=== PATIENT | male | born 1960 | race Caucasian/White ===

== ENCOUNTER 2020-09-26 09:23 | Inpatient (IN) ==
--- NOTE | 2020-09-11 15:34 | PAT Medication Instructions ---
Medication Instructions Date of Service September 11, 2020 Home Medications allopurinol 300 mg PO QAM lisinopril 10 mg PO QAM multivitamin 1 tab PO QAM sulfasalazine 0.5 g PO UD ASK your prescriber and surgeon sulfasalazine 0.5 g PO UD DO NOT take the morning of surgery lisinopril 10 mg PO QAM multivitamin 1 tab PO QAM Take morning of surgery With a small sip of water, OTHERWISE NOTHING TO EAT OR DRINK AFTER MIDNIGHT: allopurinol 300 mg PO QAM Other Notes If you have any questions please call us at [phone] or [phone] or [phone] or [phone]
--- NOTE | 2020-09-12 12:23 | Anesthesiology Consultation ---
Date of Service September 12, 2020 Assessment & Plan (1) Encounter for pre-operative examination: Chart Review Chart Review: Acceptable Risk for Surgery (pending preop Covid testing results ) and Patient seen in Pre Admission Testing Per PAT appt on 09/12/20, patient denies any recent travel. No known Covid positive contacts or Covid related symptoms. No known Covid infections in the past 90 days. Preop Covid testing scheduled 09/19/20= will await results. Educated on importance of self quarantining, social distancing and wearing mask in public both for the patient and household contacts. Pt will be fully vaccinated by time of surgery. Teaching & Discussion Pre-Anesthesia Teaching/Discussion Notes: Instructed NPO after midnight before surgery,except medications with 15 cc of water. Medication instructions provided according to the [facility] guidelines. History Surgery Operation Date: 09/26/20 13:25 Proposed Procedures p L4-S1 Decompression and Fusion, Spinal Cord Monitoring - Kevan Hardy, Height/Weight Height: 5 ft 10.5 in Weight: 92.1 kg Allergies Allergy/AdvReac Type Severity Reaction Status Date / Time No Known Allergies Allergy Verified 09/06/20 14:31 Medications Home Medications Medication Instructions Recorded Confirmed Last Taken allopurinol 300 mg PO QAM 09/06/20 09/06/20 Unknown lisinopril 10 mg PO QAM 09/06/20 09/06/20 Unknown multivitamin 1 tab PO QAM 09/06/20 09/06/20 Unknown sulfasalazine 0.5 g PO UD 09/06/20 09/06/20 Unknown zolpidem [Ambien] 5 mg PO HS PRN 09/12/20 09/12/20 Unknown Past Medical History Medical History (Updated 09/12/20 @ 12:54 by Buffy Magdaleno PA-C) Degenerative disc disease Hx of dislocation of shoulder Occurred 9 years - no current issues Hx of gout Hypertension Ulcerative colitis Stable with meds Exercise / Class Metabolic Activity II 4-5 Yardwork/Stairs/Walk up hill (one flight of stairs - no chest pain or SOB ) Past Family History Family History Other No family history of adverse response to anesthesia Past Surgical History Surgical History History of colonoscopy Hx of LASIK Hx of vasectomy Past Anesthesia History No Hx of Anesthesia Complications and No Family Hx of Anesthesia Complications History of PONV No Hx of PONV and No Hx of Motion Sickness Social History Smoking Status: Never smoker Hx Alcohol Use: No Hx Substance Use: No Review of Systems Patient denies chest pain, shortness of breath, dyspnea on exertion, reflux, cough, wheezing, palpitations. No hx of seizures, stroke, CT, apnea/snoring. No hx of blood clots or blood transfusions Physical Exam Vital Signs VITALS BP 120/78 P 66 TEMP 97.8 SP02 97% RESP 16 Constitutional no acute distress ENMT Mouth: no TMJ clicking Thyromental Distance: > or= 3.5 Finger Breadths (3.5) Mallampati Class: I Denies any loose or missing teeth Neck neck extension not limited Respiratory normal respiratory effort; no respiratory distress Auscultation: lungs clear to auscultation bilaterally; no wheezes Cardiovascular Rate/Rhythm: regular rate and regular rhythm Heart Sounds: no murmur Vessels: no carotid bruit Musculoskeletal Spine: no pain with cervical ROM Extremities: extremities normal to inspection Psychiatric Orientation: alert Testing Laboratory Results 09/12/20 12:35 09/12/20 12:35 PT 10.1 Seconds (9.0-12.0) 09/12/20 12:35 INR 1.0 (0.9-1.1) 09/12/20 12:35 APTT 24.8 Seconds (21.0-31.0) 09/12/20 12:35 Urine Color Yellow 09/12/20 12:35 Urine Appearance Clear (Clear) 09/12/20 12:35 Urine pH 7.0 (4.5-7.5) 09/12/20 12:35 Ur Specific [place] 1.010 (1.000-1.030) 09/12/20 12:35 Urine Protein Negative (Negative) 09/12/20 12:35 Urine Glucose (UA) Negative (Negative) 09/12/20 12:35 Urine Ketones Negative (Negative) 09/12/20 12:35 Urine Nitrite Negative (Negative) 09/12/20 12:35 Ur Leukocyte Esterase Negative (Negative) 09/12/20 12:35 Blood Type A Positive 09/12/20 12:35 Antibody Screen NEGATIVE 09/12/20 12:35 Electrocardiogram Date: 09/12/20 Findings: + NSR @ (63bpm) Normal EKG per cardio. Chest X-Ray Date: 09/12/20 Findings: + NAD
--- NOTE | 2020-09-12 12:51 | XRay Report ---
XR chest Pre-admission PA/Lat HISTORY: Back pain. Preop. COMPARISON: None. FINDINGS: The lungs are clear. Cardiac silhouette is normal in size. No pleural effusions. No pneumot horax. IMPRESSION: No acute process. ACT 112: Negative or not required by law. Electronically signed by: Jayson Kasper M.D. 09/12/2020 12:50 PM
[2020-09-12 13:14] LABS: Appearance Urine Clear (Clear); Bilirubin Urine Negative (Negative); Blood Urine Negative (Negative); Color Urine Yellow; Glucose Urine UA Negative (Negative); Ketones Urine Negative (Negative); Leukocyte Esterase Urine Negative (Negative); Nitrite Urine Negative (Negative); Protein Urine Negative (Negative); Urobilinogen Urine Negative (Negative)
[2020-09-12 13:21] LABS: Basophils # (auto) 0.06 K/uL (0-0.2); Basophils % (auto) 0.9 %; Eosinophils # (auto) 0.11 K/uL (0-0.5); Eosinophils % (auto) 1.7 %; Hematocrit (blood only) 41.9 % (42-52); Hemoglobin 14.4 g/dL (14.0-18.0); Immature Granulocytes # (auto) 0.01 K/uL (0.00-0.02); Immature Granulocytes % (auto) 0.2 %; Lymphocytes # (auto) 1.14 K/uL (1.2-3.4); Mean Corpuscular Hemoglobin 31.7 pg (25-34); Mean Corpuscular Hgb Conc 34.4 g/dL (32-36); Mean Corpuscular Volume 92.3 fL (80-100); Mean Platelet Volume 9.8 fL (7.4-10.4); Monocytes # (auto) 0.69 K/uL (0.11-0.59); Monocytes % (auto) 10.9 %; Neutrophils # (auto) 4.34 K/uL (1.4-6.5); Neutrophils % (auto) 68.3 %; Platelet Count 346 K/uL (130-400); RDW Coefficient of Variation 13.2 % (11.5-14.5); RDW Standard Deviation 44.9 fL (36.4-46.3); Red Blood Count 4.54 M/uL (4.7-6.1); White Blood Count 6.35 K/uL (4.8-10.8)
[2020-09-12 13:30] LABS: Partial Thromboplastin Ratio 0.9; Partial Thromboplastin Time 24.8 Seconds (21.0-31.0); Prothrombin Time 10.1 Seconds (9.0-12.0)
[2020-09-12 14:54] LABS: BUN Creatinine Ratio 22.4 (10-20); Creatinine Clr Calc Pharmacy 90.1 ml/min; Est GFR (African American) 94.9; Est GFR (Non-African American) 81.9; Potassium 4.2 mmol/L (3.5-5.1)
--- NOTE | 2020-09-13 20:18 | Electrocardiogram Report ---
Test Reason : Blood Pressure : / mmHG Vent. Rate : 063 BPM Atrial Rate : 063 BPM P-R Int : 146 ms QRS Dur : 084 ms QT Int : 386 ms P-R-T Axes : 066 051 044 degrees QTc Int : 395 ms Normal sinus rhythm Normal ECG No previous ECGs available Confirmed by Stephon Jones ([id number]) on 09/13/2020 8:18:30 PM Referred By: Kevan Hardy Confirmed By:Stephon Jones
[~2020-09-26 09:23] MED LIST: ACETAMINOPHEN 500 MG TAB PO SCH; CeleBREX 200 MG CAP PO SCH; DEXAMETHASONE SOD INJ 4 MG/ML VIAL ONE; GABAPENTIN 600 MG DOSE PO SCH; GLYCOPYRROLATE 0.2 MG/ML VIAL ONE; LIDOCAINE HCL 2% 2 ML VIAL/AMP(20MG/ML) INFIL ONE; LR 15ML/HR IV SCH; MIDAZOLAM HCL 1 MG/ML 2ML VIAL ONE; NEOSTIGMINE METHYLSULFATE 1 MG/ML 10ML VIAL ONE; ONDANSETRON INJ 2 MG/ML 2 ML VIAL ONE; PROPOFOL IV EMULSION 10 MG/ML 20 ML VIAL IV ONE; ROCURONIUM BROMIDE 10 MG/ML 5 ML VIAL IV ONE; ceFAZolin 2000MG 2,000 MG/15 ML SYR IV SCH; fentaNYL citrate 100 MCG/2 ML VIAL ONE
--- NOTE | 2020-09-26 10:01 | History & Physical Bridge Note ---
Date of Service September 26, 2020 History & Physical Bridge Note I have examined the patient, reviewed the History & Physical and in the interval since the performance of the History & Physical I have noted the following changes of clinical significance: no changes noted
--- NOTE | 2020-09-26 10:02 | History & Physical Report ---
Date of Service September 26, 2020 Assessment & Plan (1) Lumbar disc herniation with radiculopathy: Admission and Anticipated Discharge Date Admission Date: L4-S1 decompression fusion History of Present Illness Chief Complaint: Back and leg pain Primary Care Provider: Donaldo Fenton This is a 59-year-old male presents with chronic persistent back and leg pain. Failing course of nonoperative care is here for surgical invention. Allergies Allergy/AdvReac Type Severity Reaction Status Date / Time No Known Allergies Allergy Verified 09/26/20 09:55 Home Medications Medication Instructions Recorded Confirmed Type allopurinol 300 mg PO QAM 09/06/20 09/26/20 History lisinopril 10 mg PO QAM 09/06/20 09/26/20 History multivitamin 1 tab PO QAM 09/06/20 09/26/20 History sulfasalazine 0.5 g PO UD 09/06/20 09/26/20 History zolpidem [Ambien] 5 mg PO HS PRN 09/12/20 09/26/20 History Past Med/Surg History Medical History (Updated 09/26/20 @ 10:02 by Kevan Hardy DO) Degenerative disc disease Hx of dislocation of shoulder Occurred 9 years - no current issues Hx of gout Hypertension Ulcerative colitis Stable with meds Surgical History History of colonoscopy Hx of LASIK Hx of vasectomy Family History Other No family history of adverse response to anesthesia Social History Smoking Status: Never smoker Second Hand Exposure: No; Hx Alcohol Use: No Hx Substance Use: No Preferred Language: [place] 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
[2020-09-26] MEDS ORDERED: BUPIVACAINE/EPINEPHRINE 0.5% MPF 1:200,000 30 ML VIAL ONE (10:15)
[2020-09-26] MEDS ORDERED: GLYCOPYRROLATE 0.2 MG/ML VIAL ONE (11:10)
[2020-09-26] MEDS ORDERED: FLOSEAL HEMOSTATIC MATRIX 10ML TOP ONE (11:38)
--- NOTE | 2020-09-26 12:45 | Operative Report ---
Post Operative Report Pre & Post Diagnosis Operation Date: 09/26/20 11:05 Pre-Op Diagnosis: Lumbar Disc Herniation with Radiculopathy Post-Op Diagnosis: Lumbar Disc Herniation with Radiculopathy I identified the patient and participated in the time-out.: Yes Procedure Operation Date: 09/26/20 11:05 Actual Procedures #1 lumbar decompression with bilateral medial facetectomies and foraminotomies L3-4, L4-5 and L5-S1. #2 posterior spinal fusion L4-5 L5-S1. #3 placement posterior instrumentation L4-5 L5-S1. #4 interbody fusion L4-5 L5-S1. #5 place ment peek cage 12 x 26 mm at L4-5 and 9 x 26 mm at L5-S1. #6 placement locally harvested morselized autograft in the posterior gutters. #7 placement of I factor in the interbody space and posterior gutters. Surgeon Kevan Hardy, Personnel Security Specialist Nisa Hamilton Estimated Blood Loss 100 Findings Consistent with Post-Op Diagnosis Specimens None Indications This is a 59-year-old male who presents above-mentioned diagnosis after failing extensive course of nonoperative care is here for the above-mentioned procedure. Description of Procedure Patient met with identified informed consent obtained. Patient was then taken to the operative suite underwent a patient placed in a prone position just table top Aj frame. All bony prominences well-padded eyes inspected to ensure no external pressure placed upon them. This point lumbar spine was prepped and draped in a sterile fashion. Sharp dissection with the assistance of Bovie cautery performed down to and exposing the lamina and transverse processes of L for L5 and sacral ala bilaterally. From a caudal cephalad fashion complete laminectomy of L5 L4 partial laminectomy L3 was performed including bilateral medial facetectomies and foraminotomies addressing all stenosis. I also identified a massive far lateral disc condition L4-5 this is removed in its entirety. Pedicle screws then placed in L for L5 and S1 levels bilaterally with assistance of fluoroscopy the purposes laina placed. Bilateral transforaminal portion right complete discectomy of L5-S1 was performed endplates curetted to subcortical being bone and a 9 x 26 mm peek cage filled with I factor tapped in position. Then proceeded L4-L5 and again by transfemoral approach on the right complete discectomy performed endplates curetted to subcortical mean bone and a 12 x 26 mm I factor tapped in position. The rods were then locked in position bilaterally. The transverse processes of L4-L5 and sacral ala burred to subcortical bleeding bone. I factor combined with locally harvested morselized autograft was placed in posterior gutters. 15 round MARTHA drain inserted. The incision was then closed with 1 Vicryl in the fascia 2-0 Vicryl subcutaneously and 4 Monocryl for final skin closure. Steri-Strips dressings placed. Patient waken taken to PACU stable condition. Please note spinal cord monitoring was utilized at the procedure no changes noted. Lastly Nisa Hamilton was present for the entire surgery involved the patient positioning complex portions of the surgery and final skin closure. I attest to the content of the Intraoperative Record and any orders documented therein. Any exceptions are noted below.
--- NOTE | 2020-09-26 12:58 | Fluoroscopy Report ---
FL lumbar spine 2-3V CLINICAL HISTORY: L4-S1 PSF AND DECOMPRESSION COMPARISON STUDY: None. FLUOROSCOPY TIME: 27 seconds. FLUOROSCOPIC IMAGES: 2 FINDINGS: Fluoroscopy was provided during L4-L5 and L5-S1 discectomies with interbody spacer placemen t. The interbody spacer at the L5-S1 level is within the anterior aspect of the disc space. Posterior decompression is noted with bilateral pedicle screw fusion from L4 through S1. Hardware is intact. T here are no unexpected radiopaque foreign bodies. IMPRESSION: Fluoroscopy provided during L4-S1 discectomy, posterior decompression and bilateral post erior fusion. ACT 112: Negative or not required by law. Electronically signed by: Manish Szymanski M.D. 09/26/2020 12:57 PM
[2020-09-26] MEDS ORDERED: HYDROmorphone INJ 0.5 MG/0.5 ML SYR IV PRN (14:00)
[2020-09-26] MEDS ORDERED: NALOXONE HCL 0.4 MG/1 ML VIAL/CARP IV PRN (14:00)
[2020-09-26] MEDS ORDERED: diphenhydrAMINE Capsule 25 MG CAP PO PRN (14:00)
[2020-09-26] MEDS ORDERED: ONDANSETRON INJ 2 MG/ML 2 ML VIAL IV PRN (14:00)
[2020-09-26] MEDS ORDERED: LORazepam 0.5 MG TAB PO PRN (14:00)
[2020-09-26] MEDS ORDERED: ACETAMINOPHEN 500 MG TAB PO PRN (14:00)
[2020-09-26] MEDS ORDERED: hydrOXYzine HCl 25 MG TAB PO PRN (14:00)
[2020-09-26] MEDS ORDERED: bisacodyL 10 MG SUPP PR PRN (14:00)
[2020-09-26] MEDS ORDERED: ONDANSETRON 4 MG OD TAB PO PRN (14:00)
[2020-09-26] MEDS ORDERED: SOD PHOSPHATE/SOD BIPHOSPHATE ENEMA 132 ML BTL PR PRN (14:00)
[2020-09-26] MEDS ORDERED: LORazepam 0.5 MG/1 ML VIAL IV PRN (14:00)
[2020-09-26] MEDS ORDERED: ALUMINUM/MAGNESIUM SUSP 30 ML UDC PO PRN (14:00)
[2020-09-26] MEDS ORDERED: ACETAMINOPHEN 1,000 MG/100 ML VIAL IV PRN (14:00)
[2020-09-26] MEDS ORDERED: MAGNESIUM HYDROXIDE SUSP 30 ML UDC PO PRN (14:00)
[2020-09-26] MEDS ORDERED: METOCLOPRAMIDE HCL INJ 5 MG/ML 2 ML VIAL IV PRN (14:00)
[2020-09-26] MEDS ORDERED: oxyCODONE HCL IR 5 MG TAB (IMMEDIATE RELEASE) PO PRN (14:00)
[2020-09-26] MEDS ORDERED: FAMOTIDINE 20 MG TAB PO PRN (14:00)
[2020-09-26] MEDS ORDERED: DO NOT ADMINISTER PNEUMOCOCCAL VACCINE PRN (14:00)
[2020-09-26] MEDS ORDERED: PROMETHAZINE HCL 12.5 MG in SODIUM CHLORIDE 0.9% 50 ML IV PRN (14:00)
[2020-09-26] MEDS ORDERED: HYDROmorphone INJ 1 MG/ML SYRINGE IV PRN (14:00)
[2020-09-26] MEDS ORDERED: traMADol HCL 50 MG TABLET PO PRN (14:00)
[2020-09-26] MEDS ORDERED: ZOLPIDEM TARTRATE 5 MG TAB PO PRN (14:00)
[2020-09-26] MEDS ORDERED: DO NOT ADMINISTER FLU VACCINE PRN (14:00)
--- NOTE | 2020-09-26 14:03 | Anesthesiology Progress Note ---
Date of Service September 26, 2020 Anesthesia Post Procedure Vital Signs Vital Signs: Temp Pulse Pulse Resp BP Pulse Ox 09/26/20 13:45 66 12 130/66 95 09/26/20 13:35 36.2 C L 69 15 141/67 H 97 09/26/20 13:25 70 12 139/67 96 09/26/20 13:15 78 16 146/69 H 97 09/26/20 13:06 36.0 C L 94 H 20 152/94 H 98 09/26/20 10:00 36.5 C 64 18 142/87 H 98 Transfer of Care Handoff Completed per policy Notes Mental Status: alert / awake / arousable Patient Amnestic to Procedure: Yes Nausea / Vomiting: adequately controlled Pain: adequately controlled Airway Patency, RR, SpO2: stable & adequate BP & HR: stable & adequate Hydration State: stable & adequate Anesthetic Complications: no major complications apparent
--- NOTE | 2020-09-26 15:19 | Internal Medicine Consult Note ---
Date of Consultation September 26, 2020 Assessment & Plan (1) Lumbar disc herniation with radiculopathy: Lumbar Disc Herniation with Radiculopathy S/P lumbar decompression, fusion surgery by Dr. Hardy POD # 0 Pain is controlled Monitor for post OP anemia Bowel regimen to prevent constipation Activity & DVT Px, wound care as per Primary team IV fluids Continue incentive spirometry CBC in a.m. Gout Continue allopurinol Ulcerative colitis On sulfasalazine Hypertension Continue lisinopril with holding parameters DVT prophylaxis SCD CODE STATUS Full code Disposition Expected discharge home when medically stable History of Present Illness Reason for Consultation: Postoperative medical management Requesting Physician: Attending Physician: Kevan Hardy, DO History of Present Illness Patient is a 59-year-old male with history of gout, ulcerative colitis, hypertension was consulted for postop medical management after having lumbar decompression, fusion surgery for lumbar disc herniation with radiculopathy by Dr. Hardy. Patient is doing well postoperatively. States having minimal pain at surgical site but otherwise feels well. Denies any chest pain, shortness breath, dizziness, nausea, abdominal pain, focal weakness, numbness, headache, change in vision, dysuria. States that leg pain resolved after the surgery. Offers no other complaints currently. Allergies Allergy/AdvReac Type Severity Reaction Status Date / Time No Known Allergies Allergy Verified 09/26/20 09:55 Home Medications Medication Instructions Recorded Confirmed Type allopurinol 300 mg PO QAM 09/06/20 09/26/20 History lisinopril 10 mg PO QAM 09/06/20 09/26/20 History multivitamin 1 tab PO QAM 09/06/20 09/26/20 History sulfasalazine 0.5 g PO UD 09/06/20 09/26/20 History zolpidem [Ambien] 5 mg PO HS PRN 09/12/20 09/26/20 History Patient History Medical History Degenerative disc disease Hx of dislocation of shoulder Occurred 9 years - no current issues Hx of gout Hypertension Ulcerative colitis Stable with meds Surgical History History of colonoscopy Hx of LASIK Hx of vasectomy Family History Other No family history of adverse response to anesthesia Social History Smoking Status: Never smoker Second Hand Exposure: No; Hx Alcohol Use: No Hx Substance Use: No Preferred Language: [place]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 Beliefs That Will Affect Care: None Current Living Situation: Spouse Feels Safe at Home: Yes Safety Concerns: Feels Safe At This Time Assistive Devices: None Review of Systems Review of Systems: All systems reviewed & are unremarkable except as noted in HPI & below Physical Exam Physical Exam: Physical Exam: Vitals signs as noted above General Appearance:Well built and nourished,no apparent distress Head: normocephalic, Atraumatic Eyes: normal inspection, EOMI Neck: supple, Trachea midline Respiratory/Chest: Normal breath sounds, CTA, No accessory muscle use Cardiovascular: S1, S2, No murmur Back: Surgical site in dressing,+ drain Abdomen/GI:Soft, Non tender, Bowel sounds present Extremities/Musculoskeletal:normal inspection, no edema Neurologic/Psych:AAOX3, grossly no focal neurological deficits Skin: normal color, warm Results & Data ([facility]) Vital Signs (Past 12 Hours) Vital Signs Temp Pulse Pulse Resp BP BP Pulse Ox 09/26/20 14:35 36.4 C L 64 16 121/67 97 09/26/20 13:45 66 12 130/66 95 09/26/20 13:35 36.2 C L 69 15 141/67 H 97 09/26/20 13:25 70 12 139/67 96 09/26/20 13:15 78 16 146/69 H 97 09/26/20 13:06 36.0 C L 94 H 20 152/94 H 98 09/26/20 10:00 36.5 C 64 18 142/87 H 98 Diagnostic Findings Lumbar X ray:Fluoroscopy provided during L4-S1 discectomy, posterior decompression and bilateral posterior fusion. CXR: No acute process. Medications Administered Home Medications Medication Instructions Recorded Confirmed allopurinol 300 mg PO QAM 09/06/20 09/26/20 lisinopril 10 mg PO QAM 09/06/20 09/26/20 multivitamin 1 tab PO QAM 09/06/20 09/26/20 sulfasalazine 0.5 g PO UD 09/06/20 09/26/20 zolpidem [Ambien] 5 mg PO HS PRN 09/12/20 09/26/20
[2020-09-26] MEDS: KETOROLAC 30 MG/ML VIAL IV SCH ×2 (15:24→20:59)
[2020-09-26] MEDS: LACTATED RINGER'S 1,000 ML IV SCH (17:11)
[2020-09-26] MEDS: ceFAZolin 2000MG 2,000 MG/15 ML SYR IV SCH (18:12)
[2020-09-26] MEDS: DOCUSATE SODIUM/SENNA 50/8.6MG TAB PO SCH (20:59)
[2020-09-26] MEDS: sulfaSALAzine 500 MG TABLET PO SCH (21:00)
[2020-09-27] MEDS: LACTATED RINGER'S 1,000 ML IV SCH ×2 (00:01→06:09)
[2020-09-27] MEDS: ceFAZolin 2000MG 2,000 MG/15 ML SYR IV SCH (01:38)
[2020-09-27] MEDS: KETOROLAC 30 MG/ML VIAL IV SCH ×2 (03:02→08:34)
[2020-09-27] MEDS: POLYETHYLENE (MIRALAX) 17 GM PACK PO SCH ×4 (05:56→22:53)
[2020-09-27 06:04] LABS: Basophils # (auto) 0.01 K/uL (0-0.2); Basophils % (auto) 0.1 %; Hematocrit (blood only) 32.6 % (42-52); Hemoglobin 11.4 g/dL (14.0-18.0); Immature Granulocytes # (auto) 0.04 K/uL (0.00-0.02); Immature Granulocytes % (auto) 0.3 %; Lymphocytes # (auto) 0.94 K/uL (1.2-3.4); Lymphocytes % (auto) 6.8 %; Mean Corpuscular Hemoglobin 31.5 pg (25-34); Mean Corpuscular Volume 90.1 fL (80-100); Mean Platelet Volume 9.2 fL (7.4-10.4); Monocytes # (auto) 1.24 K/uL (0.11-0.59); Monocytes % (auto) 8.9 %; Neutrophils # (auto) 11.63 K/uL (1.4-6.5); Neutrophils % (auto) 83.9 %; Platelet Count 268 K/uL (130-400); RDW Coefficient of Variation 12.8 % (11.5-14.5); Red Blood Count 3.62 M/uL (4.7-6.1); White Blood Count 13.86 K/uL (4.8-10.8)
[2020-09-27 06:35] LABS: BUN Creatinine Ratio 18.5 (10-20); Calcium 8.2 mg/dl (8.5-10.1); Est GFR (African American) 88.4; Est GFR (Non-African American) 76.2; Magnesium 2.1 mg/dl (1.8-2.4); Potassium 4.9 mmol/L (3.5-5.1)
[2020-09-27] MEDS: lisinopril 10 MG TAB PO SCH (08:31)
[2020-09-27] MEDS: allopurinoL 300 MG TAB PO SCH (08:32)
[2020-09-27] MEDS: sulfaSALAzine 500 MG TABLET PO SCH ×2 (08:32→22:11)
[2020-09-27] MEDS: MULTIVITAMIN TAB PO SCH (08:33)
--- NOTE | 2020-09-27 08:34 | Orthopedic Progress Note ---
Date of Service September 27, 2020 Assessment & Plan (1) Lumbar disc herniation with radiculopathy: Admission and Anticipated Discharge Date Admission Date: September 26, 2020 1 to go physical therapy today monitor MARTHA operatively discharge in the next day or so. Subjective Back pain is controlled leg pain markedly improved Physical Exam Physical Exam: On exam patient is in chair at the bedside is extracted testing. Results & Data ([facility]) Vital Signs (Past 12 Hours) Vital Signs Temp Pulse Resp BP Pulse Ox 09/27/20 07:39 36.8 C 59 L 17 99/63 L 98 09/27/20 03:00 37.0 C 72 16 110/69 97 09/26/20 22:34 36.9 C 60 16 109/60 97
--- NOTE | 2020-09-27 09:12 | Hospitalist Progress Note ---
Date of Service September 27, 2020 Assessment & Plan (1) Lumbar disc herniation with radiculopathy: Lumbar Disc Herniation with Radiculopathy S/P lumbar decompression, fusion surgery by Dr. Hardy POD # 1 Pain is controlled Monitor for post OP anemia Bowel regimen to prevent constipation Activity & DVT Px, wound care as per Primary team IV fluids Continue incentive spirometry CBC in a.m. Post Op Blood Loss Anemia Gout Continue allopurinol Ulcerative colitis On sulfasalazine Hypertension Continue lisinopril with holding parameters DVT prophylaxis SCD Labs Checked CODE STATUS Full code DC 1-2 days ROS-No Headache, No Visual Changes, No Nausea, No Vomiting, No Fever, No Chills, No Neck Pain or Stiffness, No Chest Pain, No Palpitations, No SOB, No RIVERA, No Cough, No Sputum, No Wheezing, No Abdominal Pain, No Diarrhea, No Hematemesis, No Hemoptysis, No Unexpected Weight Loss, No Flank pain, No Melena, No Hematochezia, No Frequency, No Urgency, No Burning, No Hematuria, No Rashes, No Diaphoresis. Appetite is Normal, Sore Back Physical Exam Gen-AAO x 3, NAD, Afebrile Head-NCAT, EOMI, PERRLA, Anicteric Sclera, No Posterior Pharyngeal Erythema Neck-Supple, No JVD, No Thyromegaly, No Masses, No LAD, No Bruits Lungs-Clear to Auscultation Bilaterally, No Rales, No Rhonchi, No Wheezing, No Crepitus Chest-No S4, +S1, +S2, No S3, No Murmurs, No Rubs, No Gallops, No Ectopy Abdomen-Soft, Bowel Sounds Present, Non Tender, Non Distended, No Hepatomegaly, No Splenomegaly, No Palpable Masses, No Rebound, No Rigidity, No Guarding Musculoskeletal-Full Range of Motion Bilaterally, No CVAT Extremities-No Cyanosis, No Clubbing, No Edema Nuero-Cranial Nerves II-XII grossly intact, Motor WNL, DTRs WNL, Strength WNL, Non Focal Psych-Normal Mood Admission and Anticipated Discharge Date Admission Date: September 26, 2020 Results & Data Results & Data ([facility]) Vital Signs (Past 12 Hours) Vital Signs Temp Pulse Resp BP Pulse Ox 09/27/20 07:39 36.8 C 59 L 17 99/63 L 98 09/27/20 03:00 37.0 C 72 16 110/69 97 09/26/20 22:34 36.9 C 60 16 109/60 97
[2020-09-27] MEDS: dexAMETHasone 8 MG in SYRINGE 0 ML IV SCH (10:03)
[2020-09-27] MEDS: DOCUSATE SODIUM/SENNA 50/8.6MG TAB PO SCH (22:10)
[2020-09-28] MEDS: POLYETHYLENE (MIRALAX) 17 GM PACK PO SCH ×2 (05:32→12:42)
[2020-09-28 05:54] LABS: Hematocrit (blood only) 34.8 % (42-52); Mean Corpuscular Hemoglobin 31.5 pg (25-34); Mean Corpuscular Hgb Conc 34.5 g/dL (32-36); Mean Corpuscular Volume 91.3 fL (80-100); Mean Platelet Volume 9.5 fL (7.4-10.4); Platelet Count 306 K/uL (130-400); RDW Standard Deviation 43.1 fL (36.4-46.3); Red Blood Count 3.81 M/uL (4.7-6.1); White Blood Count 16.19 K/uL (4.8-10.8)
[2020-09-28 06:12] LABS: BUN Creatinine Ratio 18.5 (10-20); Calcium 8.5 mg/dl (8.5-10.1); Creatinine Clr Calc Pharmacy 85.8 ml/min; Est GFR (African American) 89.4; Est GFR (Non-African American) 77.1; Potassium 4.6 mmol/L (3.5-5.1)
[2020-09-28] MEDS: dexAMETHasone 8 MG in SYRINGE 0 ML IV SCH (09:09)
[2020-09-28] MEDS: allopurinoL 300 MG TAB PO SCH (09:09)
[2020-09-28] MEDS: MULTIVITAMIN TAB PO SCH (09:09)
[2020-09-28] MEDS: lisinopril 10 MG TAB PO SCH (09:09)
[2020-09-28 09:31] LABS: Appearance Urine Clear (Clear); Bilirubin Urine Negative (Negative); Blood Urine Negative (Negative); Color Urine Dark Yellow; Glucose Urine UA Negative (Negative); Ketones Urine Negative (Negative); Leukocyte Esterase Urine Negative (Negative); Nitrite Urine Negative (Negative); Protein Urine Negative (Negative); Specific Gravity Urine 1.012 (1.000-1.030); Urobilinogen Urine Negative (Negative); pH Urine 6.5 (4.5-7.5)
--- NOTE | 2020-09-28 09:38 | Hospitalist Progress Note ---
Date of Service September 28, 2020 Assessment & Plan (1) Lumbar disc herniation with radiculopathy: Lumbar Disc Herniation with Radiculopathy S/P lumbar decompression, fusion surgery by Dr. Hardy POD # 2 Pain is controlled Monitor for post OP anemia Bowel regimen to prevent constipation Activity & DVT Px, wound care as per Primary team IV fluids Continue incentive spirometry CBC in a.m. Post Op Blood Loss Anemia Hgb now 12 (pre-op hgb 14.4) Leukocytosis WBC increased from 13 to 16 in post op setting Afebrile, no infectious symptoms, lungs clear on exam UA pending Continue to monitor - will need CBC rechecked within 1 week of discharge Gout Continue allopurinol Ulcerative colitis On sulfasalazine Hypertension Continue lisinopril with holding parameters DVT prophylaxis SCD CODE STATUS Full code DC per primary service Patient seen in collaboration with Dr. London. Please see addendum. Admission and Anticipated Discharge Date Admission Date: September 26, 2020 Supervising Physician Co-Signing Physician Notes I saw this patient with the physician telecom assistant, I participated in the review of systems and physical exam. ROS-No Headache, No Visual Changes, No Nausea, No Vomiting, No Fever, No Chills, No Neck Pain or Stiffness, No Chest Pain, No Palpitations, No SOB, No RIVERA, No Cough, No Sputum, No Wheezing, No Abdominal Pain, No Diarrhea, No Hematemesis, No Hemoptysis, No Unexpected Weight Loss, No Flank pain, No Melena, No Hematochezia, No Frequency, No Urgency, No Burning, No Hematuria, No Rashes, No Diaphoresis. Appetite is Normal Physical Exam Gen-AAO x 3, NAD, Afebrile Head-NCAT, EOMI, PERRLA, Anicteric Sclera, No Posterior Pharyngeal Erythema Neck-Supple, No JVD, No Thyromegaly, No Masses, No LAD, No Bruits Lungs-Clear to Auscultation Bilaterally, No Rales, No Rhonchi, No Wheezing, No Crepitus Chest-No S4, +S1, +S2, No S3, No Murmurs, No Rubs, No Gallops, No Ectopy Abdomen-Soft, Bowel Sounds Present, Non Tender, Non Distended, No Hepatomegaly, No Splenomegaly, No Palpable Masses, No Rebound, No Rigidity, No Guarding Musculoskeletal-Full Range of Motion Bilaterally, No CVAT Extremities-No Cyanosis, No Clubbing, No Edema Nuero-Cranial Nerves II-XII grossly intact, Motor WNL, DTRs WNL, Strength WNL, Non Focal Psych-Normal Mood Subjective Patient seen and examined in 316-1. Feeling well today and able to walk many laps in the hallway without issue. Denies fever,chills, CP, SOB, N/V, abdominal pain or dysuria. Passing flatus, no bowel movement yet. Review of Systems Review of Systems: At least ten systems reviewed and negative except as noted in the HPI. Physical Exam Physical Exam: General Appearance: WD/WN, vitals as above, NAD, sitting up in bed, pleasant, conversing easily Head: normocephalic, atraumatic Eyes: normal inspection, PERRL, conjunctivae normal, anicteric sclerae ENT: external ear and nose normal, oropharynx normal Neck: normal visual inspection, trachea midline, no thyromegaly Respiratory: normal respiratory effort, lungs clear to auscultation, no wheeze, rales, rhonchi. No accessory muscle use Cardiovascular: regular rate, rhythm, no murmur, normal peripheral pulses, no BLE edema Abdomen/GI: normal bowel sounds, soft, nontender, no hepatosplenomegaly Extremities/Musculoskeletal: Surgical dressing c/d/i. MARTHA drain with minimal output. No cyanosis or clubbing, extremities motor strength 5/5 Neurologic: PERRL, CN's II-XI intact bilaterally and moves all extremities Psychiatric: A+Ox3, euthymic affect Skin: no rashes, normal color, warm/dry Results & Data Results & Data ([facility]) Vital Signs (Past 12 Hours) Vital Signs Temp Pulse Resp BP Pulse Ox 09/28/20 07:05 36.3 C L 59 L 16 132/74 97 09/27/20 22:15 37.1 C 62 18 120/86 97 Laboratory Results Short CBC 09/28/20 Range/Units 05:32 WBC 16.19 H (4.8-10.8) K/uL Hgb 12.0 L (14.0-18.0) g/dL Hct 34.8 L (42-52) % Plt Count 306 (130-400) K/uL BMP 09/28/20 05:32 Sodium 144 Potassium 4.6 Chloride 114 H Carbon Dioxide 26 BUN 19 H Creatinine 1.04 Glucose 113 H Calcium 8.5 Urine 09/28/20 Range/Units Unknown Urine Color Dark Yellow Urine Appearance Clear (Clear) Urine pH 6.5 (4.5-7.5) Ur Specific [place] 1.012 (1.000-1.030) Urine Protein Negative (Negative) Urine Glucose (UA) Negative (Negative)
--- NOTE | 2020-09-28 10:17 | Discharge Summary ---
Date of Service September 28, 2020 Admission HPI Per Admitting Provider This is a 59-year-old male presents with chronic persistent back and leg pain. Failing course of nonoperative care is here for surgical invention. Principal Diagnosis Lumbar spinal stenosis with radiculopathy Discharge Data Allergies Allergy/AdvReac Type Severity Reaction Status Date / Time No Known Allergies Allergy Verified 09/26/20 09:55 Consultations 09/26/20 14:00 Consult Hospitalist Routine Procedures Performed Operation Date: 09/26/20 11:05 Actual Procedures p L4-S1 Decompression and Fusion, Spinal Cord Monitoring(Not Applicable) - Kevan Hardy DO Ordered Studies 09/26/20 11:05 [place] lumbar spine 2-3V Routine Hospital Course (1) Lumbar disc herniation with radiculopathy: Patient went lumbar decompression fusion tolerates well second orthopedic for postoperative. Postop day 1 is up and ambulating. Postop day #2 excellent strength testing pain well controlled MARTHA drain decreasing probably. Subsequent discharge home. Discharge orders instructions were on the chart for further review. Total Time Total Time Spent Total Time Spent (In Minutes): 20 minutes Discharge Plan Discharge Items Patient Disposition: Home - Self-Care Reason For Visit: Intervertebral Disc Disorders with Radiculopathy Discharge Diagnosis: Lumbar dysfunction with radiculopathy Activity: As commented below Non-emergency contact: Primary Care Provider Call non-emergency contact if: you have any medication questions Follow-up/Referrals: Donaldo Fenton DO [Primary Care Provider] - Diet: Regular Ambulatory Orders: Complete Blood Count no Diff (Timed) Timeframe: 1 Week Location: Determined by Patient Ordered By: Anayeli Lincoln Attending Provider Instructions: ACTIVITY RECOMMENDATIONS: SELF CARE INSTRUCTIONS AFTER THORACIC/LUMBAR FUSIONS 1. You may walk to your tolerance. It is good exercise for your legs and back. Expect some back and intermittent leg aches and pains. 2. You may perform "counter-top" level activities (make a sandwich, simone with a project, etc.). 3. No bending or lifting of more than 10 pounds or back twisting of any nature (roll like a log when turning in bed). 4. You may ride in a car for 20-30 minutes at a time. No driving until after your first visit with your doctor. 5. Frequent changes of position and restricting sitting to 30 minutes at a time will help limit the amount of back spasms and stiffness you may experience. 6. You may discontinue the use of ambulatory aids (cane, crutches, etc.) once your strength and confidence allow. 7. You may ultrasonic seaming machine operator the shower and let water strike your incision when you arrive home at least once daily. Do not take a tub bath, sit in a hot tub or go into a swimming pool until after your first recheck in the office. SPECIAL CARE INSTRUCTIONS: VERY IMPORTANT TO READ AND REVIEW A. Your surgical incision has been closed with a cosmetic suture under the skin that will dissolve in about 6 weeks. In 14 days, you can use a pair of clean scissors and cut the suture that is left outside of the skin at the ends of your incision. 1. The small skin tapes can be removed 7 days after surgery if they have not fallen off by that point. 2. You may keep the wound open to air as much as possible to promote healing after post-op day number 5 unless told otherwise by your doctor. 3. If you think the wound looks like it is becoming infected (redness or worsening drainage) and/or you are experiencing fever, chill or worsening back pain and muscle spasms, contact the office so that we may evaluate you as soon as possible. B. Complications are uncommon, but please contact us if you have any signs or symptoms of: 1. wound infection (fever higher than 102.5 degrees F, redness, separation of wound, drainage, or increasing pain from the incision) 2. blood clots in legs (pain, swelling, redness and warmth in legs) 3. urinary tract infection (fever higher than 102.5 degrees F, burning upon urination or increased frequency of urination) 4. nerve problems (inability to walk on your toes or heels, numbness, loss of bowel or bladder control) 5. any other symptoms that concern you C. Please call the office at if you have any concerns or questions about your operation or recovery. D. No smoking! Smoking drastically decreases the chance of a solid fusion. E. Do not take any anti-inflammatory medications (Indocin, Advil, Motrin, Aspirin, Naprosyn, etc.) as these may inhibit the chance of a solid fusion. Tylenol is okay to take for pain. MANAGING PAIN AFTER SPINAL SURGERY 1. Narcotic medication is intended for short-term use and will be provided for surgical pain. Surgical pain usually lasts for a period of 4-6 weeks. Narcotic medication includes Percocet, Vicodin, Darvocet, Tylenol #3 or Lortab. 2. Longer-term pain is more appropriately treated with non-narcotic medication such as Tylenol ES. 3. Muscle spasm is not appropriately treated with narcotics. Muscle relaxers such as Soma, Flexeril or Skelaxin can be used along with Tylenol ES. 4. Remember that we all live with some "aches and pains". This is not unusual or uncommon after an injury or as we get older. a. Back pain is expected and may include muscle spasms for 4 to 6 weeks after surgery. The pain should gradually improve. If the pain worsens for no apparent reason, please contact the office. b. Intermittent leg pain may also be experienced and should not be concerned about unless it worsens for no apparent reason. If so, please contact the office. 5. We will provide appropriate medication within the normal guidelines of their prescribed use. We will also be very cautious and aware of potential abuse and extended duration of patients' medication needs. a. Pain medications are for your comfort and to assist with sleep and rest so that the tissue can heal. They are not provided in order to return to normal activity and should not be used through the day. To do so or worsening pain at night can result from ongoing tissue damage and development of tolerance to the prescribed medicine. 6. Please allow 2-3 days to process refills. Prescriptions will not be mailed but must be picked up at the office. FOLLOW UP VISIT: Keep your scheduled follow-up appointment. Any questions, please call the office at . Pending Studies at Discharge: No Stand-Alone Forms: [employer], Smoking Cessation Medications and DC Order Prescriptions: New tramadol 50 mg tablet 50 mg PO Q6H PRN (Reason: pain, moderate) Qty: 30 RF: 0 oxycodone 5 mg tablet 5 mg PO Q6H PRN (Reason: pain, severe) Qty: 30 RF: 0 Continued multivitamin Tablet 1 tab PO QAM RF: 0 sulfasalazine 500 mg Tablet 0.5 g PO UD RF: 0 lisinopril 10 mg Tablet 10 mg PO QAM RF: 0 allopurinol 300 mg Tablet 300 mg PO QAM RF: 0 zolpidem [Ambien] 5 mg Tablet 5 mg PO HS PRN (Reason: Insomnia) RF: 0 Discharge Orders: Discharge Order (Routine); Ordered 09/28/20 Ordered By: Kevan Hardy Admission Data Admit Date/Time: 09/26/20 13:12 Attending Provider: Kevan Hardy Admit Provider: Kevan Hardy Primary Care Provider: Donaldo Fenton Other Providers: José London
[2020-09-28] MEDS: sulfaSALAzine 500 MG TABLET PO SCH (11:17)
== END 2020-09-28 13:32 | disposition home or self-care (01) | DRG 454 ==
LOC: ASU 09:23 → 3E 13:12